=== PATIENT | female | born 2000 | race Caucasian/White ===

== ENCOUNTER 2020-05-18 03:02 | Inpatient (IN) ==
[2020-05-18] MEDS ORDERED: Al Hydrox/Mg Hydrox/Simet LIQ 30 ML UDC PO PRN (03:18)
[2020-05-18] MEDS: Vitamin THERAPEUTIC TAB PO SCH (09:09)
[2020-05-18] MEDS: DULoxetine DR 60 mg CAP PO SCH (14:08)
[2020-05-19 08:14] LABS: HDL Cholesterol 55.6 mg/dL
[2020-05-19] MEDS: Vitamin THERAPEUTIC TAB PO SCH (08:49)
[2020-05-19] MEDS: DULoxetine DR 60 mg CAP PO SCH (08:49)
[2020-05-19] MEDS: Cholecalciferol (VIT D3) 1,000 unit TAB PO SCH (08:49)
[2020-05-20] MEDS: DULoxetine DR 60 mg CAP PO SCH (09:30)
[2020-05-20] MEDS: Cholecalciferol (VIT D3) 1,000 unit TAB PO SCH (09:31)
[2020-05-20] MEDS: Vitamin THERAPEUTIC TAB PO SCH (09:32)
== END 2020-05-20 12:02 | disposition home or self-care (01) | DRG 751 ==
LOC: BSU 03:02
PROVIDERS: ADMIT Psychiatry & Neurology Psychiatry; ATTEND Psychiatry & Neurology Psychiatry